=== PATIENT | male | born 1940 | race Hispanic/Latino ===

== ENCOUNTER 2018-01-16 22:57 | Emergency (ER) | payer OTHER ==
[~2018-01-16] VITALS: Ht 157.5 cm; Wt 83.0 kg
[~2018-01-16 22:57] MED LIST: ALEVE220 MG PO; LISINOPRIL10 MG PO; LOVASTATIN40 MG PO; NIFEDIPINE ER30 M1 PO; SIMVASTATIN40 MG PO
[2018-01-16] MEDS ORDERED: ASPIRIN 81 MG CHEW TAB PO ONE (23:15)
[2018-01-16 23:16] LABS: BASOPHILS # (AUTO) 0.1 (0.0-0.1); BASOPHILS % 1.2 % (0.0-1.0); EOSINOPHILS # (AUTO) 0.3 (0.0-0.4); EOSINOPHILS % 5.4 % (0.0-6.0); HEMOGLOBIN 13.1 g/dL (14.0-18.0); LYMPHOCYTES # (AUTO) 1.3 (1.0-3.2); LYMPHOCYTES % 27.6 % (18.0-39.1); MEAN CORPUSCULAR HEMOGLOBIN 29.2 pg (28-32); MEAN CORPUSCULAR HGB CONC 33.6 g/dL (31-35); MEAN CORPUSCULAR VOLUME 86.9 fL (81-99); MONOCYTES # (AUTO) 0.5 (0.2-0.8); MONOCYTES % 11.1 % (4.4-11.3); NEUTROPHILS # (AUTO) 2.6 (2.1-6.9); NEUTROPHILS % 54.3 % (38.7-80.0); PLATELET COUNT 145 x10e3/uL (140-360); RED BLOOD COUNT 4.49 x10e6/uL (4.3-5.7); RED CELL DISTRIBUTION WIDTH 12.8 % (11.7-14.4)
[2018-01-16 23:24] LABS: INR 1.13; PROTHROMBIN TIME 13.6 seconds (11.9-14.5)
[2018-01-16 23:25] LABS: PARTIAL THROMBOPLASTIN TIME 28.6 seconds (23.8-35.5)
[2018-01-16 23:36] LABS: ALANINE AMINOTRANSFERASE 19 IU/L (0-55); ALBUMIN/GLOBULIN RATIO 1.3 (0.8-2.0); ALKALINE PHOSPHATASE 70 IU/L (40-150); ANION GAP 12.3 mmol/L (8-16); BLOOD UREA NITROGEN 16 mg/dL (7-26); BUN/CREATININE RATIO 17 (6-25); CALCIUM 9.2 mg/dL (8.4-10.2); CARBON DIOXIDE 26 mmol/L (22-29); CHLORIDE 105 mmol/L (98-107); CREATININE, SERUM 0.95 mg/dL (0.72-1.25); EST GLOMERULAR FILTRATION RATE > 60 ML/MIN (60-); GLUCOSE 116 mg/dL (74-118); POTASSIUM 4.3 mmol/L (3.5-5.1); SODIUM 139 mmol/L (136-145)
--- NOTE | 2018-01-17 00:10 | Diagnostic Imaging Report ---
EXAM: CHEST SINGLE (PORTABLE), AP 1 view INDICATION: Chest pain COMPARISON: AP view of the chest March 10, 2015 FINDINGS: LINES/TUBES: None LUNGS: No consolidations or edema. PLEURA: No effusions or pneumothorax. HEART AND MEDIASTINUM: Normal size and contour. BONES AND SOFT TISSUES: No acute findings. IMPRESSION: No acute thoracic abnormality. Signed by: Dr. Tiffanie Matthews M.D. on 01/17/2018 12:07 AM
[2018-01-17] MEDS ORDERED: NITROGLYCERIN 0.4 MG SUBL SL PRN (00:45)
[2018-01-17 02:31] LABS: CREATINE KINASE 108 IU/L (30-200)
[2018-01-17 07:01] LABS: CREATINE KINASE 77 IU/L (30-200)
[2018-01-17] MEDS ORDERED: FAMOTIDINE 20 MG/2 ML VIAL IV SCH (09:00)
[2018-01-17] MEDS ORDERED: NIFEDIPINE CR 30 MG TAB PO SCH (09:00)
[2018-01-17] MEDS ORDERED: ASPIRIN 81 MG ENTERIC COATED PO SCH (09:00)
[2018-01-17 10:45] VITALS: BP 117/89
--- NOTE | 2018-01-17 11:35 | History and Physical ---
CHIEF COMPLAINT: Chest pain, atypical, mid-epigastric. HISTORY: Patient is a 77-year-old male; apparently his son left to go somewhere and apparently he was having some chest discomfort. Patient described it is more of a midchest area and worse after he was drinking water. Patient's cardiac enzymes are negative times 3 sets. He had a negative stress test back in February 2017. At that time, his ejection fraction was approximately 65%. The patient is stable now. He is comfortable. PAST MEDICAL HISTORY: Hypertension, dyslipidemia, and chronic osteoarthritis. PAST SURGICAL HISTORY: Noncontributory. SOCIAL HISTORY: Patient does not smoke or use alcohol. No recreational drugs. ALLERGIES: SIMVASTATIN. HOME MEDICATIONS: Lisinopril, lovastatin, and nifedipine ER. PHYSICAL EXAMINATION VITAL SIGNS: Temperature is 98, blood pressure 118/69, pulse rate 70, and respirations 18. GENERAL: The patient is in no acute distress. He is awake. HEENT: Normocephalic, atraumatic, anicteric. NECK: Supple grossly. PULMONARY: Clear. CARDIOVASCULAR: Regular rate and rhythm. ABDOMEN: Soft, unremarkable. EXTREMITIES: No cyanosis or edema. NEUROLOGIC: No focal deficit. LABORATORY: Otherwise unremarkable. IMAGING: Clear x-ray unremarkable. IMPRESSION: Atypical chest pain, may be reflux versus anxiety/panic attack. PLAN: Home with oral Xanax and Pepcid. Resume home medication. Patient may follow up with his life skills worker, Dr. Kulkarni. He does want to go home and does not want to see Dr. Kulkarni at this time in the hospital. He wants to go home and follow up with him as an outpatient in the office. Discussed with the patient's family. Job#: [id number] CF
[2018-01-17] MEDS ORDERED: SIMVASTATIN 40 MG TAB PO SCH (21:00)
[2018-01-17] MEDS ORDERED: SIMVASTATIN 20 MG TAB PO SCH (21:00)
== END 2018-01-17 10:57 | disposition home or self-care (01) ==
LOC: ER 22:57 → ERHOLD 01-17 00:49 → UNDOADMIN 01-17 00:49 → ERHOLD 01-17 08:34 → UNDOADMOB 01-17 08:34
DX: R07.89 Other chest pain (principal); K25.9 Gastric ulcer, unspecified as acute or chronic, without hemorrhage or perforation; I10 Essential (primary) hypertension
CPT/HCPCS: 36415; 71045; 80053; 82550; 82553; 83880; 84484; 85025; 85610; 85730; 99284

== ENCOUNTER 2018-10-04 23:19 | Emergency (ER) | payer OTHER ==
[~2018-10-04] VITALS: Ht 157.5 cm; Wt 83.0 kg
[~2018-10-04 23:19] MED LIST changes: +ALPRAZOLAM0.25 MG
[2018-10-05 00:37] LABS: BASOPHILS # (AUTO) 0.1 (0.0-0.1); BASOPHILS % 0.6 % (0.0-1.0); EOSINOPHILS # (AUTO) 0.1 (0.0-0.4); EOSINOPHILS % 1.3 % (0.0-6.0); HEMATOCRIT 42.7 % (38.2-49.6); HEMOGLOBIN 14.1 g/dL (14.0-18.0); LYMPHOCYTES # (AUTO) 0.7 (1.0-3.2); LYMPHOCYTES % 8.6 % (18.0-39.1); MEAN CORPUSCULAR VOLUME 87.9 fL (81-99); MONOCYTES # (AUTO) 0.4 (0.2-0.8); MONOCYTES % 5.1 % (4.4-11.3); NEUTROPHILS # (AUTO) 7.2 (2.1-6.9); PLATELET COUNT 161 x10e3/uL (140-360); RED BLOOD COUNT 4.86 x10e6/uL (4.3-5.7); RED CELL DISTRIBUTION WIDTH 12.7 % (11.7-14.4)
[2018-10-05 00:51] LABS: ALANINE AMINOTRANSFERASE 17 IU/L (0-55); ALBUMIN 3.9 g/dL (3.5-5.0); ALBUMIN/GLOBULIN RATIO 1.1 (0.8-2.0); ALKALINE PHOSPHATASE 62 IU/L (40-150); AMYLASE 103 U/L (25-125); ANION GAP 11.1 mmol/L (8-16); BLOOD UREA NITROGEN 21 mg/dL (7-26); BUN/CREATININE RATIO 24 (6-25); CALCIUM 9.2 mg/dL (8.4-10.2); CARBON DIOXIDE 27 mmol/L (22-29); CHLORIDE 103 mmol/L (98-107); CREATININE, SERUM 0.89 mg/dL (0.72-1.25); EST GLOMERULAR FILTRATION RATE > 60 ML/MIN (60-); GLUCOSE 146 mg/dL (74-118); LIPASE 34 U/L (8-78); POTASSIUM 4.1 mmol/L (3.5-5.1); SODIUM 137 mmol/L (136-145)
[2018-10-05 01:01] LABS: CLARITY,URINE CLEAR (CLEAR); COLOR,URINE YELLOW (YELLOW)
[2018-10-05 01:02] LABS: BACTERIA,URINE FEW /HPF; BILIRUBIN,URINE NEGATIVE (NEGATIVE); EPITHELIAL CELLS,URINE FEW /LPF; KETONES,URINE TRACE (NEGATIVE); LEUKOCYTE ESTERASE ,URINE NEGATIVE (NEGATIVE); MUCUS,URINE MANY (RARE); NITRITE,URINE NEGATIVE (NEGATIVE); PROTEIN,URINE DIPSTICK NEGATIVE (NEGATIVE); URINE UROBILINOGEN 1 mg/dL (0.2 - 1); WBC,URINE (MAN) 0-5 /HPF (0-5)
[2018-10-05] MEDS ORDERED: SODIUM CHLORIDE 0.9% 50ML 50 ML ONE (01:10)
[2018-10-05] MEDS ORDERED: IOPAMIDOL 370 MG/ML 200 ML INFUS..BTL INJ ONE (01:11)
--- NOTE | 2018-10-05 01:48 | Diagnostic Imaging Report ---
EXAMINATION: CT of the abdomen and pelvis with contrast. TECHNIQUE: Spiral CT images of the abdomen and pelvis were performed from the lung bases to the lesser trochanters after the intravenous administration of 100 cc of Isovue 370 and the oral administration of water. Coronal and sagittal reformatted images were obtained. COMPARISON: None. CLINICAL HISTORY:Right-sided stomach pain, right upper quadrant pain one day, nausea DISCUSSION: ABDOMEN/PELVIS: LOWER THORAX:Mild eventration of the left hemidiaphragm. Lung bases are grossly clear. HEPATOBILIARY: Decreased attenuation of the hepatic parenchyma compared to the spleen, consistent with steatosis. No focal lesions. No intra or extrahepatic biliary ductal dilation. GALLBLADDER: No radio-opaque stones or sludge. No definite wall thickening. Trace pericholecystic fluid. SPLEEN: No splenomegaly. PANCREAS: No focal masses or ductal dilatation. ADRENALS: No adrenal nodules. KIDNEYS/URETERS: No hydronephrosis, stones, or solid mass lesions. PELVIC ORGANS/BLADDER: Bladder shows no wall thickening or focal lesions. Questionable small diverticulum in the left anterior aspect (series 2, image 76) versus traction from left inguinal hernia. Prostate is enlarged. PERITONEUM/RETROPERITONEUM: No free air or fluid. LYMPH NODES: No intra-abdominal, retroperitoneal, pelvic or inguinal lymphadenopathy. VESSELS: The celiac trunk,superior and inferior mesenteric and bilateral renal arteries are patent The portal, superior mesenteric and splenic veins are patent. Atherosclerotic calcification of the abdominal aorta, aortic branches and iliac vessels. GI TRACT: No bowel dilation or evidence of obstruction. No pericolonic inflammatory changes. No wall thickening. Mild sigmoid diverticulosis, without diverticulitis. BONES AND SOFT TISSUE: No aggressive lytic lesions. Moderate fat-containing left inguinal hernia. IMPRESSION: 1. Trace pericholecystic fluid. No radiopaque gallstones or definite wall thickening. No intra or extrahepatic biliary ductal dilation. Right upper quadrant ultrasound would be helpful for further evaluation, if there is clinical concern for cholelithiasis 2. Diffuse hepatic steatosis. 3. Moderate fat-containing left inguinal hernia. Signed by: Dr. Efren Jones M.D. on 10/05/2018 1:45 AM
--- NOTE | 2018-10-05 02:54 | NUR ---
PT STATES PAIN GONE NOW, AWAKE ALERT SKIN W/D RESP NONLAB, NAD NOTED.
== END 2018-10-05 03:47 | disposition home or self-care (01) ==
LOC: ER 23:19
DX: R10.11 Right upper quadrant pain (principal); R31.9 Hematuria, unspecified; R11.0 Nausea; K80.20 Calculus of gallbladder without cholecystitis without obstruction
CPT/HCPCS: 36415; 74177; 80053; 81001; 82150; 83690; 85025; 99284; Q9967

== ENCOUNTER 2019-11-24 22:27 | Emergency (ER) | payer MEDICARE, OTHER ==
[~2019-11-24] VITALS: Ht 157.5 cm; Wt 83.0 kg
--- OUTSIDE RECORDS SUMMARY | 2019-11-24 22:30 | XMS REPORT ---
Author Author [facility] t Organization [facility] Address [address] [place] [address] Phone Unavailable Care Team Providers Care Manager Private Name Role Phone SABA SOL, Penelope GARICA PCP José Antonio CRAIG Attphys Unavailable Pushpa BRIZUELA Attphys Unavailable Maksim KANG Attphys Unavailable JOSUÉ MACDONALD Attphys Unavailable JOSUÉ MACDONALD Admphyjosé antonio Unavailable Payers Payer Name Policy Type Policy Number Effective Date Expiration Date José Antonio Ramos Plus [id number] 2018 00:00:00 [facility] [place] [employer] [id number] 2018 00:00:00 [facility] Problems Condition Name Condition Details Condition Category Status Onset Date Resolution Date Last Treatment Date Treating Clinician Comments Source Chest pain Chest pain Problem Active 2014-09-16 00:00:00 [facility] Hypertensive encephalopathy Hypertensive encephalopathy Problem Active 2014-09-16 00:00:00 [facility] Allergies, Adverse Reactions, Alerts Allergy Name Allergy Type Status Severity Reaction(s) Onset Date Inacti ve Date Treating Clinician Comments Source Penicillin Allergy to Substance Active Moderate HIVES 2016-01-19 00:00:0 0 [facility] Medications Ordered Medication Name Filled Medication Name Start Date Stop Da te Current Medication? Ordering Clinician Indication Dosage Frequency Signature (SIG) Comments Components Source Alprazolam 0.25 Mg Tablet Alprazolam 0.25 Mg Tablet Yes [facility] Lisinopril 10 Mg Tablet Lisinopril 10 Mg Tablet Yes 10 Daily [facility] Lovastatin 40 Mg Tablet Lovastatin 40 Mg Tablet Yes 40 Today At 9:00PM [facility] Nifedipine (Nifedipine Er) 30 Mg Tab.er.24 Nifedipine (Nifedipine Er) 30 Mg Tab.er.24 Yes 30 Daily [facility] Naproxen Sodium (Aleve) 220 Mg Tablet, 220 Mg Oral Nap roxen Sodium (Aleve) 220 Mg Tablet, 220 Mg Oral 2018-01-16 00:00:00 No 220 A s Needed [facility] Procedures Procedure Date / Time Performed Performing Clinician [facility] e Computed tomography of abdomen and pelvis with contrast 2018 00:00:00 SCOOTER CRAIG [facility] Computed tomography of brain without radiopaque contrast 201 02-23-31 00:00:00 ANIBAL RAMOS [facility] Encounters Start Date/Time End Date/Time Encounter Type [facility] ID Source 2018-10-04 23:19:00 2018-10-05 03:47:00 Departed Emergency Room 1 SCOOTER CRAIG [facility] [id number] [facility] 2018-07-14 18:14:00 2018-07-15 12:30:00 Discharged Inpatient (obs) 1 TABBYJORDAN REBECCA [facility] [id number] [facility] 2018-01-16 22:57:00 2018-01-17 10:57:00 Departed Emergency Room 1 PAMELA KANG [facility] [id number] [facility] Results Test Description Test Time Test Comments Results Result Comments Source CT ABDOMEN/PELVIS W 2018-10-05 01:37:00 [facility] [address] [address] Patient Name: ALICE RAMIREZ MR #: [id number] : 1940 Age/Sex: 78/M Req #: [id number] Adm Physician: Ordered by: SCOOTER CRAIG MD Report #: [id number] Location: ER Room/Bed: Procedure: [id number] CT/CT ABDOMEN/PELVIS W Exam Date: 10/05/18 Exam Time: 0115 REPORT STATUS: Signed EXAMINATION: CT of the abdomen and pelvis with contrast. TECHNIQUE: Spiral CT images of the abdomen and pelvis were performed from the lung bases to the lesser trochanters after the intravenous administration of 100 cc of Isovue 370 and the oral administration of water. Coronal and sagittal reformatted images were obtained. COMPARISON: None. CLINICAL HISTORY:Right-sided stomach pain, right upper quadrant pain one day, nausea DISCUSSION: ABDOMEN/PELVIS: LOWER THORAX:Mild eventration of the left hemidiaphragm. Lung bases are grossly clear. HEPATOBILIARY: Decreased attenuation of the hepatic parenchyma compared to the spleen, consistent with steatosis. No focal lesions. No intra or extrahepatic biliary ductal dilation. GALLBLADDER: No radio-opaque stones or sludge. No definite wall thickening. Trace pericholecystic fluid. SPLEEN: No splenomegaly. PANCREAS: No focal masses or ductal dilatation. ADRENALS: No adrenal nodules. KIDNEYS/URETERS: No hydronephrosis, sto ebonie, or solid mass lesions. PELVIC ORGANS/BLADDER: Bladder shows no wall thickening or focal lesions. Questionable small diverticulum in the left anterior aspect (series 2, image 76) versus traction from left inguinal hernia. Prostate is enlarged. PERITONEUM/RETROPERITONEUM: No free air or fluid. LYMPH NODES: No intra-abdominal, retroperitoneal, pelvic or inguinal lymphadenopathy. VESSELS: The celiac trunk,superior and inferior mesenteric and bilateral renal arteries are patent The portal, superior mesenteric and splenic veins are patent. Atherosclerotic calcification of the abdominal aorta, aortic branches and iliac vessels. GI TRACT: No bowel dilation or evidence of obstruction. No pericolonic inflammatory changes. No wall thickening. Mild sigmoid diverticulosis, without diverticulitis. BONES AND SOFT TISSUE: No aggressive lytic lesions. Moderate fat-containing left inguinal hernia. IMPRESSION: 1. Trace pericholecystic fluid. No radiopaque gallstones or definite wall thickening. No intra or extrahepatic biliary ductal dilation. Right upper quadrant ultrasound would be helpful for further evaluation, if there is clinical concern for cholelithiasis 2. Diffuse hepatic steatosis. 3. Moderate fat-containing left inguinal hernia. Signed by: Dr. Efren Shankar M.D. on 10/05/2018 1:45 AM Dictated By: EFREN SHANKAR MD 4 Transcribed By: LEIDA on 10/05/18144 COPY TO: SCOOTER CRAIG MD Urine Color 2018-10-05 01:02:00 Test Item Urine Color (test code = 5778-6) YELLOW YELLOW [facility] Ztykvpa0662-64-46 01:02:00* Test Item Value Reference Range Interpretation Comments Urine Clarity (test code = 14257-4) CLEAR CLEAR [facility]neyU[facility] Specific Gnfdxmr2655-76-12 01:02:00 * Test Item Value Reference Range Interpretation Comments Urine Specific [place] (test code = 5811-5) 1.025 1.010-1.02 5 [facility]ney[facility] [id number] 01:02:00* Test Item Value Reference Range Interpretation Comments Urine pH (test code = 80848-8) 6 5-7 [facility] Leukocyte Yvsepucy1995-62-28 01:02:00* Test Item Value Reference Range Interpretation Comments Urine Leukocyte Esterase (test code = 5799-2) NEGATIVE NEGATIVE [facility]ney[facility] Lyyioyv9946-94-58 01:02:00* Test Item Value Reference Range Interpretation Comments Urine Nitrite (test code = 66955-9) NEGATIVE NEGATIVE [facility]ney[facility] Nwniscd3033-40-70 01:02:00* Test Item Value Reference Range Interpretation Comments Urine Protein (test code = 5804-0) NEGATIVE NEGATIVE [facility]ney[facility] Glucose (UA)2018-10-05 01:02:00* Test Item Value Reference Range Interpretation Comments Urine Glucose (UA) (test code = 2349-9) NEGATIVE NEGATIVE [facility] Uutxuzx6142-77-08 01:02:00* Test Item Value Reference Range Interpretation Comments Urine Ketones (test code = 49685-2) TRACE NEGATIVE [facility] Zzchvubtbxol2611-56-67 01:02:00* Test Item Value Reference Range Interpretation Comments Urine Urobilinogen (test code = 84093-1) 1 0.2-1 [facility] Pibiakypp8295-66-07 01:02:00* Test Item Value Reference Range Interpretation Comments Urine Bilirubin (test code = 1978-6) NEGATIVE NEGATIVE [facility] Weetg9671-32-98 01:02:00* Test Item Value Reference Range Interpretation Comments Urine Blood (test code = 94307-3) 1+ NEGATIVE [facility]ney[facility] YHE8476-40-77 01:02:00* Test Item Value Reference Range Interpretation Comments Urine WBC (test code = 5821-4) 0-5 0-5 [facility]ney[facility] VGP6964-05-93 01:02:00* Test Item Value Reference Range Interpretation Comments Urine RBC (test code = 57806-4) 6-10 0-5 [facility]ney[facility] Xkplvbiv1729-32-10 01:02:00* Test Item Value Reference Range Interpretation Comments Urine Bacteria (test code = 43872-2) FEW NONE [facility]ney[facility] Epithelial Nezdo5439-69-64 01:02:00 * Test Item Value Reference Range Interpretation Comments Urine Epithelial Cells (test code = 96237-2) FEW NONE [facility]neyU[facility] Gahnv4442-30-30 01:02:00* Test Item Value Reference Range Interpretation Comments Urine Mucus (test code = 8247-9) [facility] Yeama4822-63-80 00:52:00* Test Item Value Reference Range Interpretation Comments Sodium Level (test code = 2951-2) 137 136-145 [facility]neyPotassium Bubiy6452-60-35 00:52:00* Test Item Value Reference Range Interpretation Comments Potassium Level (test code = 2823-3) 4.1 3.5-5.1 [facility]neyChloride Kmefi3568-70-34 00:52:00* Test Item Value Reference Range Interpretation Comments Chloride Level (test code = 2075-0) 103 98-107 [facility] McKinneyCarbon Dioxide Avyqe5641-96-69 00:52:00* Test Item Value Reference Range Interpretation Comments Carbon Dioxide Level (test code = 2028-9) 27 22-29 [facility] McKinneyAnion Wqn6885-01-51 00:52:00* Test Item Value Reference Range Interpretation Comments Anion Gap (test code = 39774-3) 11.1 8-16 [facility] McKinneyBlood Urea Ckvjkfcd1389-25-66 00:52:00* Test Item Value Reference Range Interpretation Comments Blood Urea Nitrogen (test code = 3094-0) 21 7-26 [facility]neyCreatinine2019-03-24 00:52:00* Test Item Value Reference Range Interpretation Comments Creatinine (test code = 2160-0) 0.89 0.72-1.25 [facility]neyBUN/Creatinine Rwttw1839-81-37 00:52:00* Test Item Value Reference Range Interpretation Comments BUN/Creatinine Ratio (test code = 3097-3) 24 6- [facility] McKinneyEstimat Glomerular Filtration Rate 2018-10-05 00:52:00* Test Item Value Reference Range Interpretation Comments Estimat Glomerular Filtration Rate (test code = 891398624) > 60 >60 Ranges were taken from the National Kidney Disease Education Program and the [facility] literature.Reference ranges:60 or greater: Dsovwx30-41 ( for 3 consecutive months): Chronic kidney disease 15 or less: Kidney failureBaylor Scott & White Medical Center – McKinneyGlucose Psyws5928-28-78 00:52:00* Test Item Value Reference Range Interpretation Comments Glucose Level (test code = SCN2182) 146 74-118 [facility] McKinneyCalcium Wcbrl4326-17-46 00:52:00* Test Item Value Reference Range Interpretation Comments Calcium Level (test code = 68666-9) 9.2 8.4-10.2 [facility] McKinneyTotal Lacpytupu4327-94-38 00:52:00* Test Item Value Reference Range Interpretation Comments Total Bilirubin (test code = 1975-2) 0.4 0.2-1.2 [facility] McKinneyAspartate Amino Transf (AST/SGOT) 2018-10-05 00:52:00* Test Item Value Reference Range Interpretation Comments Aspartate Amino Transf (AST/SGOT) (test code = Aspartate Amino Transf (AST/SGOT)) 18 5-34 [facility] McKinneyAlanine Aminotransferase (ALT/SGPT) 2018-10-05 00:52:00* Test Item Value Reference Range Interpretation Comments Alanine Aminotransferase (ALT/SGPT) (test code = 1742-6) 17 0-55 [facility] Xetyzyw6462-64-06 00:52:00* Test Item Value Reference Range Interpretation Comments Total Protein (test code = 2885-2) 7.3 6.5-8.1 [facility] McKinneyAlbumin2019-03-24 00:52:00* Test Item Value Reference Range Interpretation Comments Albumin (test code = 1751-7) 3.9 3.5-5.0 [facility] McKinneyGlobulin2019-03-24 00:52:00* Test Item Value Reference Range Interpretation Comments Globulin (test code = 77325-4) 3.4 2.3-3.5 [facility] McKinneyAlbumin/Globulin Ctgsw5758-95-05 00:52:00 * Test Item Value Reference Range Interpretation Comments Albumin/Globulin Ratio (test code = 1759-0) 1.1 0.8-2.0 [facility] McKinneyAlkaline Bqxulssjyyi0866-82-21 00:52:00* Test Item Value Reference Range Interpretation Comments Alkaline Phosphatase (test code = 6768-6) 62 40-150 [facility] McKinneyAmylase Iyayg1136-27-38 00:52:00* Test Item Value Reference Range Interpretation Comments Amylase Level (test code = 1798-8) 103 25-125 [facility] McKinneyLipase2019-03-24 00:52:00* Test Item Value Reference Range Interpretation Comments Lipase (test code = 3040-3) 34 8-78 [facility] McKinneyWhite Blood Riueo3797-30-02 00:39:00* Test Item Value Reference Range Interpretation Comments White Blood Count (test code = 6690-2) 8.50 4.8-10.8 [facility] McKinneyRed Blood Xpjnu7070-91-37 00:39:00* Test Item Value Reference Range Interpretation Comments Red Blood Count (test code = 789-8) 4.86 4.3-5.7 [facility] McKinneyHemoglobin2019-03-24 00:39:00* Test Item Value Reference Range Interpretation Comments Hemoglobin (test code = 37947-4) 14.1 14.0-18.0 [facility] McKinneyHematocrit2019-03-24 00:39:00* Test Item Value Reference Range Interpretation Comments Hematocrit (test code = 4544-3) 42.7 38.2-49.6 [facility] McKinneyMean Corpuscular Klkumn8820-89-56 00:39:00* Test Item Value Reference Range Interpretation Comments Mean Corpuscular Volume (test code = 787-2) 87.9 81-99 [facility] McKinneyMean Corpuscular Hdrxuzvwfb4615-71-46 00:39:00* Test Item Value Reference Range Interpretation Comments Mean Corpuscular Hemoglobin (test code = 785-6) 29.0 28-32 [facility] McKinneyMean Corpuscular Hemoglobin Concent 2018-10-05 00:39:00* Test Item Value Reference Range Interpretation Comments Mean Corpuscular Hemoglobin Concent (test code = 786-4) 33.0 31-35 [facility] McKinneyRed Cell Distribution Jjzqg7066-79-05 00:39:00* Test Item Value Reference Range Interpretation Comments Red Cell Distribution Width (test code = 48267-4) 12.7 11.7 -14.4 [facility] McKinneyPlatelet Wyeuv1594-29-95 00:39:00* Test Item Value Reference Range Interpretation Comments Platelet Count (test code = 777-3) 161 140-360 [facility] McKinneyNeutrophils (%) (Auto)2018-10-05 00:39:00 * Test Item Value Reference Range Interpretation Comments Neutrophils (%) (Auto) (test code = 69637-4) 84.0 38.7-80.0 [facility] McKinneyLymphocytes (%) (Auto)2018-10-05 00:39:00 * Test Item Value Reference Range Interpretation Comments Lymphocytes (%) (Auto) (test code = 736-9) 8.6 18.0-39.1 [facility] McKinneyMonocytes (%) (Auto)2018-10-05 00:39:00* Test Item Value Reference Range Interpretation Comments Monocytes (%) (Auto) (test code = 5905-5) 5.1 4.4-11.3 [facility]neyEosinophils (%) (Auto)2018-10-05 00:39:00 * Test Item Value Reference Range Interpretation Comments Eosinophils (%) (Auto) (test code = 713-8) 1.3 0.0-6.0 [facility]neyBasophils (%) (Auto)2018-10-05 00:39:00* Test Item Value Reference Range Interpretation Comments Basophils (%) (Auto) (test code = 706-2) 0.6 0.0-1.0 [facility] McKinneyIM GRANULOCYTES %2018-10-05 00:39:00* Test Item Value Reference Range Interpretation Comments IM GRANULOCYTES % (test code = IM GRANULOCYTES %) 0.4 0.0- 1.0 [facility] McKinneyNeutrophils # (Auto)2018-10-05 00:39:00* Test Item Value Reference Range Interpretation Comments Neutrophils # (Auto) (test code = 751-8) 7.2 2.1-6.9 [facility] McKinneyLymphocytes # (Auto)2018-10-05 00:39:00* Test Item Value Reference Range Interpretation Comments Lymphocytes # (Auto) (test code = 78035-9) 0.7 1.0-3.2 [facility] McKinneyMonocytes # (Auto)2018-10-05 00:39:00* Test Item Value Reference Range Interpretation Comments Monocytes # (Auto) (test code = 742-7) 0.4 0.2-0.8 [facility]neyEosinophils # (Auto)2018-10-05 00:39:00* Test Item Value Reference Range Interpretation Comments Eosinophils # (Auto) (test code = 711-2) 0.1 0.0-0.4 [facility]neyBasophils # (Auto)2018-10-05 00:39:00* Test Item Value Reference Range Interpretation Comments Basophils # (Auto) (test code = 704-7) 0.1 0.0-0.1 [facility] McKinneyAbsolute Immature Granulocyte (auto 2018-10-05 00:39:00* Test Item Value Reference Range Interpretation Comments Absolute Immature Granulocyte (auto (gauri t code = Absolute Immature Granulocyte (auto) 0.03 0-0.1 [facility] McKinneyTriglycerides Bjbjn3563-10-45 06:45:00* Test Item Value Reference Range Interpretation Comments Triglycerides Level (test code = 2571-8) 140 0-149 [facility] McKinneyCholesterol Zanga3095-73-80 06:45:00* Test Item Value Reference Range Interpretation Comments Cholesterol Level (test code = 2093-3) 159 0-199 Less than 200 mg/dL Low Plqh231 - 239 mg/dL Borderline Xruv386 m g/dl and greater High Risk [facility] McKinneyLDL Cjhfqvtncfs0780-83-58 06:45:00* Test Item Value Reference Range Interpretation Comments LDL Cholesterol (test code = 2089-1) 93 60-130 [facility] McKinneyHDL Nqmvdrmydky7610-98-96 06:45:00* Test Item Value Reference Range Interpretation Comments HDL Cholesterol (test code = 2085-9) 38 40-60 [facility] McKinneyCholesterol/HDL Egrky0489-07-98 06:45:00 * Test Item Value Reference Range Interpretation Comments Cholesterol/HDL Ratio (test code = 9830-1) 4.2 3.9-4.7 [facility] McKinneyCreatine Kinase GA5037-37-39 06:24:00* Test Item Value Reference Range Interpretation Comments Creatine Kinase MB (test code = 58272-4) 0.80 0-5.0 [facility] McKinneyTroponin W4083-34-86 06:24:00* Test Item Value Reference Range Interpretation Comments Troponin I (test code = KXU6523) 0.002 0-0.300 [facility] McKinneyCreatine Wlxwdu4562-83-47 06:19:00* Test Item Value Reference Range Interpretation Comments Creatine Kinase (test code = 2157-6) 48 30-200 [facility] McKinneyCT BRAIN SN7603-60-66 14:39:00 [address] [address] Patient Name: ALICE RAMIREZ MR #: [id number] : 1940 Age/Sex: 78/M Req #: [id number] Adm Physician: Ordered by: ANIBAL RAMOS ADJUSTO WRITER OPERATOR Report #: [id number] Location: ER Room/Bed: Procedure: 16 CT/CT BRAIN WO Exam Date: 07/14/18 Exam Time: 135 0 REPORT STATUS: Signed Examinat ion: CT head without contrast Clinical Indication: Dizziness. Blurred vision. Technique: Transaxial noncontrast images from the skull base through the vertex were obtained. Sagittal and coronal reformatted images were done. Dose mod ulation, iterative reconstruction, and/or weight based adjustment of the mA/kV was utilized to reduce the radiation dose to as low as reasonably achievable. Comparison: Head CT performed September 16, 2014. Findings: Scalp: No a bnormalities. Bones: Intact. No fractures. No blastic or lytic lesions. Brain sulci: Appropriate for patient's age. Ventricles: Normal in size and co nfiguration. No hydrocephalus. . Extra-axial space: No abnormalities. Parenchyma: There are subtle confluent areas of low-attenuation within s ubcortical and periventricular white matter, nonspecific, but could represent microvascular ischemic disease. No masses, hemorrhage, or acute or chronic c ortical based vascular insults. Suprasellar region: No abnormalities. Director Of Pupil Personnel Program niocervical junction: The foramen magnum is patent. No Chiari one malformatio n. Impression: 1. No new acute intracranial finding when compared to prior head CT performed September 16, 2014. 2. Unchanged mild chronic microva scular ischemic change. Signed by: Dr. Hazel Jarvis M.D. on 07/14/2018 2:41 PM Dictated By: HAZEL TRUJILLO MD 1441 Transcribed By: LEIDA on 1441 COPY TO: ANIBAL RAMOS NP CHEST SINGLE (PORTABLE) 2018-07-14 14:36:00 [address] [place] [address] Patient Name: ALICE RAMIREZ MR #: [id number] : 1940 Age/Sex: 78/M Req #: [id number] Adm Physician: Ordered by: ANIBAL RAMOS NP Report #: [id number] Location: ER Room/Bed: Procedure: 1231-00 39 DX/CHEST SINGLE (PORTABLE) Exam Date: 07/14/18 Ex am Time: 1350 REPORT STATUS: Signed EXAM: CHEST SINGLE (PORTABLE), AP 1 view COMPARISON: Chest radiograph . FINDINGS: LINES/TUBES: None LUNGS: Low lung volumes. No yaneli dence of pneumonia or pulmonary edema. PLEURA: No effusions or pneumothora x. HEART AND MEDIASTINUM: Unremarkable cardiomediastinal silhouette. Athe rosclerotic calcifications of the aortic arch. BONES AND SOFT TISSUES: No a cute bony abnormality. IMPRESSION: No acute radiographic abnormality. Signed by: Dr. Aung Lee MD on 07/14/2018 2:37 PM Dictated By: AUNG LEE MD 36 Transcribed By: LEIDA on 07/14/187 COPY TO: ANIBAL RAMOS NP B-Type Natriuretic Vlsnxly7210-08-71 14:35:00* Test Item Value Reference Range Interpretation Comments B-Type Natriuretic Peptide (test code = 64086-0) 31.4 0-100 [facility] McKinneyActivated Partial Thromboplast Time 2018-07-14 14:20:00* Test Item Value Reference Range Interpretation Comments Activated Partial Thromboplast Time (test code = 08038-5) 27.5 23.8-35.5 [facility] McKinneyProthrombin Udgj6173-71-92 14:15:00* Test Item Value Reference Range Interpretation Comments Prothrombin Time (test code = 5902-2) 13.7 11.9-14.5 [facility] McKinneyProthromb Time International Ratio 2018-07-14 14:15:00* Test Item Value Reference Range Interpretation Comments Prothromb Time International Ratio (test code = 6301-6) 0.96 Oral Anticoagulant Therapy INR Values:1. Low Intensity Therapy 1.5 - 2.02 . Moderate Intensity Therapy 2.0 - 3.03. High Intensity Therapy(1) 2.5 - 3. 54. High Intensity Therapy(2) 3.0 - 4.05. Panic Value INR > 5.0 [facility]2018-01-17 00:06:00 [place] [address] Patient Name: ALICE RAMIREZ MR #: [id number] : 1940 Age/Sex: 77/M Req #: [id number] Adm Physician: Ordered by: PAMELA KANG MD Report #: [id number] Location: ER Room/Bed: Procedure: 3273-0282 DX/CHEST SINGLE (PORT ABLE) Exam Date: 01/16/18 Exam Time: 2350 REPO RT STATUS: Signed EXAM: CHEST SINGLE (PORTABLE), AP 1 view INDICATION: Ches t pain COMPARISON: AP view of the chest March 10, 2015 FINDINGS: LINES /TUBES: None LUNGS: No consolidations or edema. PLEURA: No effusions or pneumothorax. HEART AND MEDIASTINUM: Normal size and contour. BONES AND SOFT TISSUES: No acute findings. IMPRESSION: No acute thoracic abno rmality. Signed by: Dr. Dontae Matthews M.D. on 01/17/2018 12:07 AM Dictated By: DONTAE MATTHEWS MD Transcribed By: LEIDA on 01/17/186 COPY TO: PAMELA GREEN MD Stress Test - Treadmill ONLY [place] [address] Patient Name : ALICE RAMIREZ MR #: [id number] : 1940 Age/Sex: 77/M Adm Physician : JOSUÉ MACDONALD MD Admit Date : 03/07/17 Location : MED/SURG3 Room/Bed : [facility] REPORT: Cardiology Report DATE OF STUDY: March 08, 2017 STRESS MYOVIEW REPORT INDICATI ONS: Chest pain. DESCRIPTION OF PROCEDURE: After informed consent, the luther casarez was brought to the stress lab. He exercised on Jose protocol. At pea k heart rate, patient was given 10 millicuries of technetium 99 Myoview, and myocardial perfusion SPECT images were obtained in horizontal long and short axis and vertical long axis views. Subsequently, the patient was given 30 millicuries of technetium 99 Myoview, and myocardial perfusion SPECT images were obtained in the horizontal long and short axis and vertical long axis v iews. Gated images were also obtained. Patient tolerated this procedure wit hout any complications. REPORT: Baseline EKG showed sinus rhythm at 83 perez ts per minute, left anterior fascicular block, right bundle branch block with secondary ST-T changes. PARAMETERS 1. Resting heart rate is 90 beats per minute. 2. Maximum heart rate 140 beats per minute. 3. Resting blood pr essure 122/71 mmHg. 4. Maximum blood pressure 170/78 mmHg. 5. Reason for t ermination: Fatigue. 6. Age-predicted maximum heart rate is 97%. 7. Durat ion of exercise is 4 minutes and 45 seconds. 8. Workload is 7 mets. 9. Max col was Jose. INTERPRETATION 1. Negative for chest pain. 2. Negative f or arrhythmias. 3. Blood pressure response was normal with exercise. 4. No s ignificant ST-T changes seen during exercise compared to baseline. 5. Aishwarya sis of SPECT images reveals uniform radioisotope uptake in all segments of my ocardium without any significant perfusion defects. CONCLUSIONS 1. No ev idence of significant ischemia or infarction on this study. 2. No wall motion abnormalities. 3. Ejection fraction was 63%. 13 :01 Job#: [id number] Signature Date Dictated By: REBEKAH STATON MD Transcribed By: PATRICIA on 03/08/17 < Electronically signed by REBEKAH STATON MD><<Signature on File>>03/11/17 0559 COPY TO:
[2019-11-24 23:22] LABS: BASOPHILS # (AUTO) 0.1 (0.0-0.1); BASOPHILS % 1.1 % (0.0-1.0); EOSINOPHILS # (AUTO) 0.3 (0.0-0.4); EOSINOPHILS % 6.4 % (0.0-6.0); HEMOGLOBIN 13.2 g/dL (14.0-18.0); LYMPHOCYTES % 21.1 % (18.0-39.1); MEAN CORPUSCULAR HEMOGLOBIN 28.6 pg (28-32); MEAN CORPUSCULAR HGB CONC 32.2 g/dL (31-35); MEAN CORPUSCULAR VOLUME 88.7 fL (81-99); MONOCYTES # (AUTO) 0.5 (0.2-0.8); MONOCYTES % 9.9 % (4.4-11.3); NEUTROPHILS # (AUTO) 2.8 (2.1-6.9); NEUTROPHILS % 61.3 % (38.7-80.0); PLATELET COUNT 142 x10e3/uL (140-360); RED BLOOD COUNT 4.62 x10e6/uL (4.3-5.7); RED CELL DISTRIBUTION WIDTH 12.3 % (11.7-14.4)
[2019-11-24 23:34] LABS: ALANINE AMINOTRANSFERASE 15 IU/L (0-55); ALBUMIN 3.8 g/dL (3.5-5.0); ALBUMIN/GLOBULIN RATIO 1.2 (0.8-2.0); ALKALINE PHOSPHATASE 63 IU/L (40-150); ANION GAP 12.5 mmol/L (8-16); BLOOD UREA NITROGEN 14 mg/dL (7-26); BUN/CREATININE RATIO 14 (6-25); CALCIUM 9.1 mg/dL (8.4-10.2); CARBON DIOXIDE 27 mmol/L (22-29); CHLORIDE 106 mmol/L (98-107); CREATINE KINASE 89 IU/L (30-200); CREATININE, SERUM 0.98 mg/dL (0.72-1.25); EST GLOMERULAR FILTRATION RATE > 60 ML/MIN (60-); GLUCOSE 108 mg/dL (74-118); POTASSIUM 4.5 mmol/L (3.5-5.1); SODIUM 141 mmol/L (136-145)
--- NOTE | 2019-11-24 23:58 | Emergency Department Note ---
History of Present Illnes History of Present Illness Chief Complaint: Chest Pain Stated Complaint: CP History of Present Illness This is a 79 year old male sudden onset of epigastric CP which started prior to arrival. (+) SOB . Seen at bedside NAD with unlabored respirations. 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 Any updates have been documented here. Past Medical History Past Medical History: Hypertension, Hyperlipedemia Other Medical History: Ulcer HIATAL HERNIA Past Surgical History: Appendectomy, Hernia Repair Other Surgery: hernia Social History Smoking Cessation: Never Smoker Alcohol Use: None Any Illegal Drug Use: No Other Last Tetanus: Unknown Review of Systems Review of Systems Constitutional: no symptoms EENTM: no symptoms Cardiovascular: chest pain Respiratory: dyspnea Gastrointestinal: no symptoms Genitourinary: no symptoms Musculoskeletal: no symptoms Integumentary: no symptoms Neurological: no symptoms Psychological: no symptoms Endocrine: no symptoms Hematological/Lymphatic: no symptoms Review of other systems All other systems reviewed and negative. Physical Exam Related Data Allergies: Coded Allergies: Penicillins (Verified Allergy, Intermediate, HIVES, 01/19/16) Triage Vital Signs Vital Signs Date Time Temp Pulse Resp B/P (MAP) Pulse Ox O2 Delivery O2 Flow Rate FiO2 11/24/19 22:40 98.0 59 17 146/84 99 Physical Exam CONSTITUTIONAL Constitutional: well-developed, well-nourished HENT HENT: normocephalic, atraumatic, oropharynx clear/moist, nose normal HENT - Ear: left ext ear normal, right ext ear normal EYES Eyes: PERRL, conjunctivae normal NECK Neck: ROM normal PULMONARY Pulmonary: effort normal, breath sounds normal CARDIOVASCULAR Cardiovascular: regular rhythm, heart sounds normal, capillary refill normal, normal rate GASTROINTESTINAL Abdominal: soft, nontender, bowel sounds normal GENITOURINARY Genitourinary: exam deferred SKIN Skin: warm, dry MUSCULOSKELETAL Musculoskeletal: ROM normal NEUROLOGICAL Neurological: alert, oriented x 3, no gross motor or sensory deficits PSYCHOLOGICAL Psychiatric/behavioral: mood/affect normal, judgement normal Results Laboratory Lab results reviewed: Yes Laboratory comments cardiac enzymes neg x 2 Imaging Y: Yes Impressions CXR : no acute thoracic abnormality Procedures 12 Lead ECG Interpretation [employer]: Interpreted by ED physician Date: November 24, 2019 Prior PAPER WINDER tracings: reviewed Rhythm: sinus rhythm Rate: normal Conduction: right bundle branch block ST Segments Normal: Yes Critical Care Time Subsequent provider I assumed direction of critical care for this patient from another provider of my specialty. Clinical Decision Tools HEART Score HEART Scort: HEART Scort Response (Comments) Value History Slightly suspicious 0 EKG Normal 0 Age 45 - 65 1 Risk factors hx of atherosclerotic disease 2 Troponin 1-3x normal limit Total 3 Assessment & Plan Assessment & Plan Problems: (1) Atypical chest pain Assessment & Plan Patient with 2 sets of cardiac enzymes, both negative. Plan to discharge to home with F/U with PCP Depart Disposition: HOME, SELF-correction Meds Reported Medications Alprazolam (ALPRAZOLAM) 0.25 Mg Tablet 07/14/18 Nifedipine (NIFEDIPINE ER) 30 Mg Tab.er.24, 30 MG PO DAILY 03/08/17 Lovastatin (LOVASTATIN) 40 Mg Tablet, 40 MG PO 2100 THERAPEUTICALLY SUBSTITUTED WITH SIMVASTATIN 20MG 01/19/16 Lisinopril (LISINOPRIL) 10 Mg Tablet, 10 MG PO DAILY, #30 TAB 09/16/14 RADHA MACDONALD DO November 24, 2019 22:54
--- NOTE | 2019-11-25 00:45 | NUR ---
BLOOD OBTAINED VIA VENIPUNCTURE FOR REPEAT CARDIAC MARKERS PER MD ORDER; PT TOLERATED PROCEDURE WELL
[2019-11-25 01:17] LABS: CREATINE KINASE MB 2.5 ng/mL (0-5.0)
[2019-11-25 01:27] VITALS: BP 138/87
--- NOTE | 2019-11-25 02:34 | Diagnostic Imaging Report ---
EXAMINATION: Chest 2 views INDICATION: Chest pain COMPARISON: 01/16/2018 FINDINGS: TUBES and LINES: None. LUNGS: Lungs are well inflated. Lungs are clear. There is no evidence of pneumonia or pulmonary edema. PLEURA: No pleural effusion or pneumothorax. HEART AND MEDIASTINUM: The cardiomediastinal silhouette is at the upper limit of normal in size. BONES AND SOFT TISSUES: No acute osseous lesion. Soft tissues are unremarkable. UPPER ABDOMEN: No free air under the diaphragm. IMPRESSION: No acute thoracic radiographic abnormality. Signed by: Charlie Prasad MD on 11/25/2019 2:26 AM
== END 2019-11-25 01:43 | disposition home or self-care (01) ==
LOC: ER 22:27
DX: R07.89 Other chest pain (principal); R10.13 Epigastric pain; R06.02 Shortness of breath; I10 Essential (primary) hypertension; E78.5 Hyperlipidemia, unspecified; I25.10 Atherosclerotic heart disease of native coronary artery without angina pectoris
CPT/HCPCS: 36415; 71046; 80053; 82550; 82553; 84484; 85025; 93005; 99283

== ENCOUNTER 2024-03-30 22:33 | Emergency (ER) | payer MEDICARE ==
[~2024-03-30] VITALS: Ht 167.6 cm; Wt 83.5 kg
[2024-03-30 22:33] VITALS: TEMP 97.9
[2024-03-30 23:05] LABS: BASOPHILS # (AUTO) 0.1 (0.0-0.1); BASOPHILS % 1.3 % (0.0-1.0); EOSINOPHILS # (AUTO) 0.3 (0.0-0.4); EOSINOPHILS % 5.1 % (0.0-6.0); HEMATOCRIT 41.9 % (38.2-49.6); HEMOGLOBIN 13.7 g/dL (14.0-18.0); LYMPHOCYTES # (AUTO) 1.2 (1.0-3.2); LYMPHOCYTES % 22.4 % (18.0-39.1); MEAN CORPUSCULAR HEMOGLOBIN 29.8 pg (28-32); MEAN CORPUSCULAR HGB CONC 32.7 g/dL (31-35); MEAN CORPUSCULAR VOLUME 91.3 fL (81-99); MONOCYTES # (AUTO) 0.6 (0.2-0.8); MONOCYTES % 10.3 % (4.4-11.3); NEUTROPHILS # (AUTO) 3.3 (2.1-6.9); NEUTROPHILS % 60.5 % (38.7-80.0); PLATELET COUNT 159 x10e3/uL (140-360); RED BLOOD COUNT 4.59 x10e6/uL (4.3-5.7); RED CELL DISTRIBUTION WIDTH 12.8 % (11.7-14.4); WHITE BLOOD COUNT 5.45 x10e3/uL (4.8-10.8)
[2024-03-30 23:16] LABS: ALBUMIN/GLOBULIN RATIO 1.3 (0.8-2.0); ANION GAP 13.3 mmol/L (8-16); BILIRUBIN,TOTAL 0.5 mg/dL (0.2-1.2); CREATININE, SERUM 0.96 mg/dL (0.72-1.25); POTASSIUM 4.3 mmol/L (3.5-5.1)
[2024-03-30 23:22] LABS: TROPONIN I 0.003 ng/mL (0-0.300)
[2024-03-31 00:33] VITALS: PULSE 51; RESP 19
[2024-03-31 01:04] LABS: TROPONIN I 0.005 ng/mL (0-0.300)
[2024-03-31 01:27] VITALS: BP 130/75; PULSE 55; RESP 19; TEMP 98; O2SAT 96
== END 2024-03-31 01:28 | disposition home or self-care (01) ==
LOC: ER 22:37
DX: R00.2 Palpitations (principal); R07.89 Other chest pain; I10 Essential (primary) hypertension; E78.5 Hyperlipidemia, unspecified; R94.31 Abnormal electrocardiogram [ECG] [EKG]; Z87.19 Personal history of other diseases of the digestive system
CPT/HCPCS: 36415; 71045; 80053; 82550; 83690; 83880; 84484; 85025; 93005; 99284

== ENCOUNTER 2025-01-06 03:59 | Emergency (ER) | payer MEDICARE ==
[~2025-01-06] VITALS: Ht 167.6 cm; Wt 83.5 kg
[2025-01-06] MEDS: LIDOCAINE VISC 2% SOLN 15 ML UDC PO STA (04:17)
[2025-01-06] MEDS: MAGNESIUM/ALUMINUM/SIMETHICONE 30 ML UDC PO STA (04:18)
[2025-01-06] MEDS: BELLADONNA ALK/PHENOBARBITAL 5 ML UDC PO ONE (04:18)
[2025-01-06 04:23] LABS: BASOPHILS # (AUTO) 0.1 (0.0-0.1); BASOPHILS % 1.3 % (0.0-1.0); EOSINOPHILS # (AUTO) 0.3 (0.0-0.4); EOSINOPHILS % 5.9 % (0.0-6.0); HEMATOCRIT 40.8 % (38.2-49.6); HEMOGLOBIN 13.6 g/dL (14.0-18.0); LYMPHOCYTES # (AUTO) 1.5 (1.0-3.2); LYMPHOCYTES % 27.8 % (18.0-39.1); MEAN CORPUSCULAR HEMOGLOBIN 29.4 pg (28-32); MEAN CORPUSCULAR HGB CONC 33.3 g/dL (31-35); MEAN CORPUSCULAR VOLUME 88.3 fL (81-99); MONOCYTES # (AUTO) 0.5 (0.2-0.8); MONOCYTES % 9.6 % (4.4-11.3); PLATELET COUNT 159 x10e3/uL (140-360); RED BLOOD COUNT 4.62 x10e6/uL (4.3-5.7); RED CELL DISTRIBUTION WIDTH 13.2 % (11.7-14.4); WHITE BLOOD COUNT 5.43 x10e3/uL (4.8-10.8)
[2025-01-06 04:48] LABS: ALBUMIN 3.9 g/dL (3.5-5.0); ALBUMIN/GLOBULIN RATIO 1.3 (0.8-2.0); BILIRUBIN,TOTAL 0.8 mg/dL (0.2-1.2); CALCIUM 8.9 mg/dL (8.4-10.2); CREATININE, SERUM 0.82 mg/dL (0.72-1.25)
[2025-01-06 04:55] LABS: TROPONIN I 0.004 ng/mL (0-0.300)
[2025-01-06 05:14] VITALS: PULSE 71; RESP 18; TEMP 98; O2SAT 98
== END 2025-01-06 05:17 | disposition home or self-care (01) ==
LOC: ER 04:12
DX: R10.13 Epigastric pain (principal); I10 Essential (primary) hypertension; E78.5 Hyperlipidemia, unspecified; R94.31 Abnormal electrocardiogram [ECG] [EKG]; Z87.19 Personal history of other diseases of the digestive system
CPT/HCPCS: 36415; 71045; 80053; 82550; 83690; 83880; 84484; 85025; 93005; 99284